=== PATIENT | female | born 2000 | race Caucasian/White ===

== ENCOUNTER 2022-01-20 08:59 | Emergency (ER) | payer OTHER, SELFPAY ==
[2022-01-20 09:05] VITALS: BP 133/93; PULSE 105; RESP 16; TEMP 36.8; O2SAT 98
--- NOTE | 2022-01-20 09:05 | ED.URI ---
HPI - URI/Sore Throat General Chief Complaint: Ear Stated Complaint: EARACHE/SORE THROAT/LOSS OF VOICE/COUGH Time Seen by Provider: 01/20/22 09:05 Source: patient and RN notes reviewed History of Present Illness HPI Narrative: Patient is a 21-year-old female who presents to urgent care with her father with complaints of voice loss, earache, cough. Patient states that her symptoms started on . Denies any sore throat. States she has been taking DayQuil, Tylenol. Reports of fevers of 101 F. Denies any nausea, vomiting. Patient is type 2 diabetic and states her blood sugars have been within normal limits. No other acute complaints. No acute distress noted. Patient and father aware of the plan of care. Some parts of this dictation were generated by voice recognition software and may contain typographical and/or grammatical inaccuracies. Related Data Home Medications Medication Instructions Recorded Confirmed duloxetine 60 mg capsule,delayed 60 mg PO DAILY 01/20/22 01/20/22 release metformin 500 mg tablet 500 mg PO DIRECTED 01/20/22 01/20/22 Allergies Allergy/AdvReac Type Severity Reaction Status Date / Time No Known Allergies Allergy Mild Unverified 01/20/22 09:04 Review of Systems Review of Systems: CONSTITUTIONAL: Reports of fever, chills EYES: Denies visual changes, redness, or discharge. ENT: Reports of postnasal drainage, voice loss, bilateral otalgia CARDIOVASCULAR: Denies chest pain, palpitations, or edema. RESPIRATORY: Reports cough without dyspnea GASTROINTESTINAL: Denies abdominal pain, nausea, vomiting, or diarrhea. GENITOURINARY: Denies dysuria or hematuria. SKIN: Denies rash or itching. MUSCULOSKELETAL: Denies back pain, joint pain, or myalgia. NEUROLOGIC: Denies headache, numbness, or weakness. All other systems reviewed are negative, except as documented in HPI. PMFSH Comments At the time of my signature, I reviewed and agree with the nursing past medical, surgical, social, and family history. There is no relevant family history pertinent to the patient complaint. Exam Narrative: GENERAL: This is a well-nourished, well-developed patient, in no apparent distress. HEAD: normocephalic, atraumatic. EYES: PERRL. Sclera clear/white. Vision is grossly intact. EARS: External ears normal, auditory canals clear and without drainage, very mild eustachian tube dysfunction. TMs normal without perforation. Hearing grossly intact. NOSE: External nose normal with no obvious nasal discharge, nares without redness, no rhinorrhea. THROAT: Mucous membranes moist, posterior pharynx clear. Mild bilateral tonsillar edema, reported to have larger tonsils. No exudate or ulceration. Mild postnasal drainage. NECK: Neck supple, non-tender without lymphadenopathy CARDIOVASCULAR: Regular rate and rhythm without murmurs, gallops, or rubs. RESPIRATORY: Clear to auscultation. Breath sounds equal bilaterally. No wheezes, rales, or rhonchi. SKIN: warm, intact with no suspicious lesions or rash, good texture and turgor. NEURO: awake, alert, and oriented to person, place and time. There were no obvious focal neurologic abnormalities. EXTREMITIES: No clubbing, cyanosis, or edema. Course Course Level of Care: Express Care Visit Vital Signs Vital signs: Vital Signs Temperature 98.3 F 01/20/22 09:05 Pulse Rate 105 H 01/20/22 09:05 Respiratory Rate 16 01/20/22 09:05 Blood Pressure 133/93 H 01/20/22 09:05 Pulse Oximetry 98 01/20/22 09:05 Temperature 98.3 F 01/20/22 09:05 Pulse Rate 105 H 01/20/22 09:05 Respiratory Rate 16 01/20/22 09:05 Blood Pressure 133/93 H 01/20/22 09:05 Pulse Oximetry 98 01/20/22 09:05 Reviewed- Patient is informed that they may have pre-hypertension or hypertension based on a blood pressure reading in the department. I recommend the patient call the primary care provider listed on their discharge instructions or a physician of their choice this week to arrange
== END 2022-01-20 09:22 | disposition home or self-care (01) ==
PROVIDERS: Emergency Provider Nurse Practitioner Family; PCP Internal Medicine
DX: J06.9 Acute upper respiratory infection, unspecified (principal)
CPT/HCPCS: 99202; G0463

== ENCOUNTER 2024-12-23 09:41 | Emergency (ER) | payer OTHER, SELFPAY ==
--- NOTE | 2024-12-23 09:50 | ED.URI ---
HPI - URI/Sore Throat General Chief Complaint: Upper Respiratory Infection Stated Complaint: SWOLLEN UVULA Time Seen by Provider: 12/23/24 09:55 Source: patient Mode of arrival: ambulatory Limitations: no limitations History of Present Illness HPI Narrative: Sadaf is a 24-year-old female patient presenting to the clinic today with complaints of sore throat/swollen uvula x1 week. She reports no known fevers or body aches but has had some chills and hot flashes. Rates pain 7/10. States sometimes she gets chocked when swallowing. Denies any difficulty breathing/no stridor. No drooling. Denies any chest pain or shortness of breath. Voice sounds muffled and she feels that her uvula is swollen. Related Data Allergies Allergy/AdvReac Type Severity Reaction Status Date / Time No Known Allergies Allergy Verified 12/23/24 09:51 Review of Systems Review of Systems: Pertinent positives per HPI. Patient denies any fever, rash, headache, visual changes, dizziness, cough, shortness of breath, chest pain, palpitations, nausea, vomiting, diarrhea, constipation, abdominal pain, or any urinary issues. [facility] Past Medical History Medical History Type 2 diabetes mellitus with hyperglycemia, with long-term current use of insulin Dislocated knee NAFLD (nonalcoholic fatty liver disease) Asperger syndrome History of PCOS Type 2 diabetes mellitus Surgical History Surgical History [place] teeth extracted Family History Family History Grandparent Lung cancer Diabetes mellitus Depression Hypertension Father Hypertension Psoriasis Mother Hypertension Social History Social History Smoking status: Never smoker Alcohol intake: current Substance use: never Lack of Transportation: No Lack of Food: Never True Current Housing: I Have Housing Concerned About Future Housing: No Difficulty Paying Gas/Electric Bills: No Difficulty Paying for Meds: No Currently Unemployed: YES Education: Associate Degree Difficulty w/ Childcare or Family Care: No Comments At the time of my signature, I reviewed and agree with the nursing past medical, surgical, social, and family history. There is no relevant family history pertinent to the patient complaint. Exam Narrative: General: Well-developed, well nourished, in no apparent distress Head: Normocephalic, atraumatic Eyes: Pupils equally round and reactive to light bilaterally, EOM intact, sclera and conjunctive clear, no discharge, lids normal Ears: TMs intact and clear, ear canals clear, no drainage, grossly hearing normal. Nose: Nares patent, no discharge, no inflammation, no sinus tenderness. Mouth: Oral pharynx without lesions or masses, good dentition, MMM. Neck: Supple, trachea midline, no enlargement of anterior or posterior cervical nodes, no thyroid masses or goiter palpable. Cardio: Regular rate and rhythm, s1 and s2 normal, no murmur appreciated. Resp: Clear to auscultation bilaterally, no rhonchi, rales, wheezing or rubs Course Course Emergency Course: Portions of this record may have been created with voice recognition software. Level of Care: Express Care Visit Vital Signs Vital signs: Vital Signs Temperature 36.5 C 12/23/24 09:55 Pulse Rate 139 H 12/23/24 09:55 Respiratory Rate 16 12/23/24 09:55 Blood Pressure 121/78 12/23/24 09:55 Pulse Oximetry 100 12/23/24 09:55 Temperature 36.5 C 12/23/24 09:55 Pulse Rate 139 H 12/23/24 09:55 Respiratory Rate 16 12/23/24 09:55 Blood Pressure 121/78 12/23/24 09:55 Pulse Oximetry 100 12/23/24 09:55 Vital signs reviewed MDM - URI/Sore Throat MDM Narrative Medical decision making narrative: At the time of visit patient is resting comfortably on the exam table. Patient appears to be nontoxic. Complaints of sore throat/swollen uvula x1 week. She reports no known fevers or body aches but has had some chills and hot flashes. Rates pain 7/10. States sometimes she gets chocked when swallowing. Denies any difficulty breathing/no stridor. No drooling. Denies any chest pain or shortness of breath. Voice sounds muffled and she feels that her uvula is swollen. On exam patient has bilateral TMs intact and clear, no nasal drainage, oral pharynx red with white exudate to bilateral tonsils- 4+ tonsils and uvula is red and swollen. Lung sounds are clear, heart rates tachycardic but regular rate rhythm. Strep test was ordered. Labs: Strep test was positive in the clinic today. Plan: I suspect patient has strep pharyngitis. Patient has 4+ tonsils with red swollen uvula. Patient does have muffled sound in voice but denies any shortness of breath or stridor. Heart rates increase but patient appears to be slightly anxious. No obvious sign peritonsillar abscess-patient is not drooling. Will send in prescription for prednisone and Augmentin. Supportive measures were discussed with the patient and they voiced understanding discharge instructions and agrees to treatment plan. Return precautions reviewed Differential Diagnosis Differential diagnosis: Likely upper respiratory infection, otitis media, sinusitis, viral infection, bronchitis, influenza, pharyngitis and other (COVID) Lab Data Labs: Lab Results 12/23/24 Range/Units 10:03 POC Grp A Strep Screen Positive (Negative) Discharge Plan Discharge Clinical Impression: Acute streptococcal pharyngitis Patient Disposition: Home Condition: Stable Instructions: Antibiotic Form, Strep Throat (ED) Additional Instructions: Strep test is positive in the clinic today. Change your toothbrush in 24 hours after initiation of the antibiotics Take prescription medications only as prescribed-prednisone and Augmentin Increase fluids and stay well hydrated May take Tylenol or motrin as directed on bottle for pain/fever May use Flonase 1 spray in each nare daily May take OTC antihistamines such as Zyrtec or Claritin daily as directed on bottle May apply Vicks vapor rub to chest to open sinuses Sinus rinses for congestion Cepacol spray, cough drops, throat lozenges, warm tea with honey/lemon, gargle salt water to soothe throat BRAT diet for diarrhea Clear liquids x 24 hours then advance as tolerated for nausea/vomiting Go to the ED if you develop a worsening in your condition- high fever not controlled by Tylenol or Motrin, dehydration, weakness, lethargy, shortness of breath, or chest pain. Follow up with your PCP in 3-5 days if symptoms persist. Patient Language: [place] Prescriptions: New amoxicillin-pot clavulanate 875-125 mg tablet 1 tablet PO Q12H 10 Days Qty: 20 0RF prednisone 50 mg tablet 50 mg PO DAILY 5 Days Qty: 5 0RF No Action (DME) Contour Next Test Strips Strip See Rx Instructions .Route Qty: 100 5RF Rx Instructions: check it 2-3 times a week semaglutide 2 mg/dose (8 mg/3 mL) pen injector 2 mg subcut WEEKLY 90 Days Qty: 9 2RF duloxetine 60 mg capsule,delayed release(DR/EC) 60 mg PO DAILY Qty: 90 2RF metformin 500 mg tablet 1,000 mg PO BID Qty: 360 1RF Follow-up/Referrals: UNKNOWN,DOCTOR [Primary Care Provider] Stand Alone Forms: Work/School Release IP Time of Disposition: 10:02 Quality NIHSS Nursing Documentation ED NIHSS nursing documentation: reviewed/agree
[2024-12-23 09:55] VITALS: BP 121/78; PULSE 139; RESP 16; TEMP 36.5; O2SAT 100
[2024-12-23 10:05] LABS: EDSTREPNEGPOS1 Positive (Negative)
== END 2024-12-23 10:07 | disposition home or self-care (01) ==
PROVIDERS: Emergency Provider Nurse Practitioner Family
DX: J02.0 Streptococcal pharyngitis (principal); E11.9 Type 2 diabetes mellitus without complications; Z79.84 Long term (current) use of oral hypoglycemic drugs; F84.5 Asperger's syndrome; E28.2 Polycystic ovarian syndrome; K76.0 Fatty (change of) liver, not elsewhere classified
CPT/HCPCS: 87880; 99213; G0463